=== PATIENT | male | born 1945 | race Caucasian/White ===

== ENCOUNTER 2017-08-11 12:15 | Inpatient (IN) | payer OTHER ==
[~2017-08-11] VITALS: Ht 170.2 cm; Wt 108.9 kg
== END 2017-08-21 15:57 | disposition home or self-care (01) | DRG 331 ==
LOC: SURH 08-18 05:00 → SURG 08-18 10:23 → O/R 08-18 10:23 → SURH 08-18 12:15 → SURG 08-18 18:19
PROVIDERS: Colon & Rectal Surgery
PROC: 07TC4ZZ Resection of Pelvis Lymphatic, Percutaneous Endoscopic Approach (ICD-10-PCS; 2017-08-18)
PROC: 0DJD8ZZ Inspection of Lower Intestinal Tract, Via Natural or Artificial Opening Endoscopic (ICD-10-PCS; 2017-08-18)
PROC: 0DTN4ZZ Resection of Sigmoid Colon, Percutaneous Endoscopic Approach (ICD-10-PCS; principal; 2017-08-18 05:00)
DX: C20 Malignant neoplasm of rectum (principal); E66.09 Other obesity due to excess calories; I10 Essential (primary) hypertension

== ENCOUNTER 2017-08-26 00:25 | Inpatient (IN) | payer OTHER ==
[~2017-08-26] VITALS: Ht 170.2 cm; Wt 113.4 kg
== END 2017-08-28 16:01 | disposition home or self-care (01) | DRG 696 ==
LOC: ER 00:25 → SEC-K 13:09 → MEDJ 13:09
DX: R33.8 Other retention of urine (principal); C18.9 Malignant neoplasm of colon, unspecified; N99.89 Other postprocedural complications and disorders of genitourinary system; Y83.8 Other surgical procedures as the cause of abnormal reaction of the patient, or of later complication, without mention of misadventure at the time of the procedure; Y92.098 Other place in other non-institutional residence as the place of occurrence of the external cause; E66.09 Other obesity due to excess calories; I10 Essential (primary) hypertension; R10.2 Pelvic and perineal pain